=== PATIENT | female | born 1960 | race Caucasian/White ===

== ENCOUNTER 2016-09-05 15:10 | Emergency (ER) | payer BC, OTHER ==
--- NOTE | 2016-09-05 17:41 | REP ---
Clinical: Cough. Technique: PA and lateral. Comparison: None. Findings: Lateral view demonstrates small posterior consolidation. Mediastinum and cardiac silhouette normal. Further evaluation demonstrates small 3 mm calcified nodule in the right upper lung zone and chronic-appearing interstitial changes. No pneumothorax. Skeletal structures demonstrate osteopenia and degenerative changes including mild compression deformity at T12. Impression: Posterior lower lobe infiltrate suggested. Osteopenia and compression deformity at T12 of uncertain chronicity. Signed by Michael Khan MD 09/05/2016 05:32 P
[2016-09-05] MEDS ORDERED: LevoFLOXacin 250 MG TABLET As Ordered ONE (18:44)
[2016-09-05] MEDS ORDERED: LevoFLOXacin 500 MG TABLET As Ordered ONE (18:44)
--- NOTE | 2016-09-05 19:03 | EDDOCDS ---
Physician Documentation [facility] Name: Kina Arora Age: 55 yrs Sex: Female : 1960 Arrival Date: 09/05/2016 Time: 15:10 Bed PR Private MD: No Pcp Disposition: 09/05/16 18:55 Discharged to Home/Self Care. Impression: Pneumonia, unspecified organism, Acute sinusitis, Wedge compression fracture of unspecified thoracic vertebra - T12. - Condition is Stable. - Discharge Instructions: Back, Compression Fracture, Pneumonia, Adult, Sinusitis, Adult. - Prescriptions for Levaquin 750 mg Oral Tablet - take 1 tablet by ORAL route once daily for 5 days; 5 tablet. - Work Release Form - 4 day, Medication Reconciliation, Local Pharmacy Hours form. - Follow up: [facility]; When: 2 - 3 days; Reason: Recheck today's complaints, Continuance of care. - Problem is new. - Symptoms have improved. - Notes: USE MEDICATION INSTRUCTED, FOLLOW UP WITH YOUR DOCTOR OR THE GRADUATE MEDICAL PROGRAM, RETURN TO THE ER IF THE SYMPTOMS WORSEN OR BECOME CONCERNING Historical: - Allergies: no known allergies; - Home Meds: 1. none - PMHx: none; - PSHx: Laparoscopy; - Social history: Smoking status: Patient uses tobacco products, current every day smoker. No barriers to communication noted, The patient speaks fluent Wallisian, Speaks appropriately for age. - Family history: Not pertinent. - : The pt / caregiver states he / she is not on anticoagulants. Home medication list is obtained from the patient. - Exposure Risk Screening:: None identified. 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 2 in. (157.48 cm) (R); Pain 2/10; 18:41 BP 120 / 56; Pulse 86; Resp 18; Temp 100.3(O); Pulse Ox 97% on R/A; Pain 0/10; jb5 15:13 Body Mass Index 18.29 (45.36 kg, 157.48 cm) ct3 MDM: 17:09 Chest, 2 View (pa\E\lat) Ordered. EDMS 17:09 [facility] Payment Agreement was scanned into [employer] and attached to record. gjb 17: Financial registration complete. gjb 18:14 Chest, 2 View (pa\E\lat) Reviewed. ck7 18:39 levofloxacin 750 mg PO once ordered. ck7 Administered Medications: 18:47 Drug: levofloxacin 750 mg [levofloxacin 250 mg tablet (3 tabs)] Route: PO; dy Signatures: Dispatcher [employer] EDMS Maribell Maria, RN RN Homer Barlow, RPA-C RPA-Cck7 Siva Arredondo RN RN jmb Beck, Gabriela gjb Youngs, David RN dy The chart was reviewed and I authenticate all verbal orders and agree with the evaluation and treatment provided.Attachments: 17:09 [facility] Payment Agreement [employer] [facility] MTDD
--- NOTE | 2016-09-05 19:03 | EDDOCDS ---
Nurse's Notes [facility] Name: Kina Arora Age: 55 yrs Sex: Female : 1960 Arrival Date: 09/05/2016 Time: 15:10 Bed PR Private MD: No Pcp Diagnosis: Pneumonia, unspecified organism;Acute sinusitis;Wedge compression fracture of unspecified thoracic vertebra-T12 Presentation: 09/05 15:14 Presenting complaint: Patient states: runny nose, cough and fever off and on for a srm week. Adult Sepsis Screening: The patient does not have new or worsening altered mentation. Patient's respiratory rate is less than 22. Systolic blood pressure is greater than 100. Patient has a qSOFA score of 0- Negative Sepsis Screen. Suicide/Homicide risk assessment- the patient denies having any suicidal and/or homicidal ideations and does not present with any other emotional, behavioral or mental health complaints. Status: Patient is not a customer service administrator or dependent. Transition of care: patient was not received from another setting of care. 15:14 Acuity: FLORIAN Level 5 srm 15:14 Method Of Arrival: Walkin/Carried/Asstd [facility] Triage Assessment: 15:15 General: Appears in no apparent distress, Behavior is appropriate for age, cooperative. srm Pain: Pain currently is 1 out of 10 on a pain scale. 15:15 Pt Declines HIV testing. [facility] C T TECH: 15:15 LMP N/A - Post-menopause srm Historical: - Allergies: no known allergies; - Home Meds: 1. none - PMHx: none; - PSHx: Laparoscopy; - Social history: Smoking status: Patient uses tobacco products, current every day smoker. No barriers to communication noted, The patient speaks fluent Ukrainian, Speaks appropriately for age. - Family history: Not pertinent. - : The pt / caregiver states he / she is not on anticoagulants. Home medication list is obtained from the patient. - Exposure Risk Screening:: None identified. Screenin:00 Screening information is obtained from the patient. Fall risk: No risks identified. jmb Assistance ADL's: requires no assistance with activities of daily living. Abuse/DV Screen: The patient / caregiver reports he/she is: not in a situation that causes fear, pain or injury. Nutritional screening: No deficits noted. Advance Directives: Currently, there is no health care proxy. There is no active DNR order. There is no living will. There is no Power of Security Police Officer. home support is adequate. Assessment: 19:00 General: Patient instructed on discharge instructions. Patient asked if there were any b questions regarding discharge, patient stated no. Patient signed discharge instructions. Patient discharged in stable condition. . Vital Signs: 15:13 BP 113 / 58; Pulse 93; Resp 18; Temp 97.6(O); Pulse Ox 99% on R/A; Weight 45.36 kg (R); ct3 Height 5 ft. 2 in. (157.48 cm) (R); Pain 2/10; 18:41 BP 120 / 56; Pulse 86; Resp 18; Temp 100.3(O); Pulse Ox 97% on R/A; Pain 0/10; jb5 15:13 Body Mass Index 18.29 (45.36 kg, 157.48 cm) ct3 Vitals: 15:13 Log In Time: September 05, 2016 at 15:01. ct3 ED Course: 15:11 Patient visited by Mary Sherman PCA. ct3 15:11 Patient moved to Waiting ct3 15:13 No Pcp is Private Physician. ct3 15:13 Patient moved to Pre RCE ct3 15:14 Triage Initiated srm 16:52 Patient moved to Triage 2 dy 16:54 Homer Sam RPA-C is PHCP. ck7 16:54 Teena Suarez MD is Attending Physician. ck7 16:54 Patient visited by Homer Sam RPA-C. ck7 17:09 [facility] Payment Agreement was scanned into [employer] and attached to record. gjb 17:15 Patient moved to TR1 srm 17:31 Patient visited by Homer Sam RPA-C. ck7 18:12 Patient visited by Homer Sam RPA-C. ck7 18:12 Chest, 2 View (pa\E\lat) Returned. EDMS 18:23 Patient moved to PR1 / 25 jb5 18:41 Patient visited by Bonnie Braga PCA. jb5 18:41 Patient visited by Bonnie Braga PCA. jb5 18:54 [facility] is Referral Physician. ck7 19:00 The patient / caregiver is instructed regarding the plan of care and ED course. jmb 19:00 No IV's were initiated during this patient's visit. No procedures done that require jmb assistance. Administered Medications: 18:47 Drug: levofloxacin 750 mg [levofloxacin 250 mg tablet (3 tabs)] Route: PO; dy Order Results: Radiology Order: Chest, 2 View (pa\E\lat) Test: Chest, 2 View (pa\E\lat) REASON FOR EXAMINATION: Cough; Clinical: Cough.; ; Technique: PA and lateral.; ; Comparison: None.; ; Findings:; Lateral view demonstrates small posterior consolidation.; Mediastinum and cardiac silhouette normal. Further evaluation demonstrates small; 3 mm calcified nodule in the right upper lung zone and chronic-appearing; interstitial changes. No pneumothorax. Skeletal structures demonstrate; osteopenia and degenerative changes including mild compression deformity at T12.; ; Impression:; Posterior lower lobe infiltrate suggested.; Osteopenia and compression deformity at T12 of uncertain chronicity.; ; ; Signed by; Michael Khan MD 09/05/2016 05:32 P; Outcome: 18:55 Discharge ordered by Provider. ck7 19:00 Discharge Assessment: Patient awake, alert and oriented x 3. No cognitive and/or jmb functional deficits noted. Patient verbalized understanding of disposition instructions. Patient awake and alert. obeys commands, Oriented to person, place and time. Patient verbalized understanding of disposition instructions. Patient has no functional deficits. patient administered narcotics - no. The following High Risk Discharge criteria are identified: None. Discharged to home ambulatory. Condition: stable. Discharge instructions given to patient, Instructed on discharge instructions, follow up and referral plans. medication usage, Demonstrated understanding of instructions, medications, Pt was receptive of discharge instructions/ teaching. Prescriptions given X 1, Work note provided to patient. No special radiology studies were completed. Property sent home with patient. 19:02 Patient left the ED. carissa Signatures: Dispatcher [employer] EDMS Maribell Maria, Devonte Huston RN, RN RN dy Baker, Janet, SUSPECT ARTIST SUSPECT ARTIST jb5 Mary Sherman, SUSPECT ARTIST SUSPECT ARTIST ct3 Homer Sam, RPA-C RPA-Cck7 Siva Arredondo RN RN jmb Beck, Gabriela gjb Corrections: (The following items were deleted from the chart) 15:14 15:13 BP 113 / 58; ct3 ct3 MTDD
--- NOTE | 2016-09-07 20:02 | EDDOCDS ---
Physician Documentation [facility] Name: Kina Arora Age: 55 yrs Sex: Female : 1960 Arrival Date: 09/05/2016 Time: 15:10 Bed PR Private MD: No Pcp Disposition: 09/05/16 18:55 Discharged to Home/Self Care. Impression: Pneumonia, unspecified organism, Acute sinusitis, Wedge compression fracture of unspecified thoracic vertebra - T12. - Condition is Stable. - Discharge Instructions: Back, Compression Fracture, Pneumonia, Adult, Sinusitis, Adult. - Prescriptions for Levaquin 750 mg Oral Tablet - take 1 tablet by ORAL route once daily for 5 days; 5 tablet. - Work Release Form - 4 day, Medication Reconciliation, Local Pharmacy Hours form. - Follow up: [facility]; When: 2 - 3 days; Reason: Recheck today's complaints, Continuance of care. - Problem is new. - Symptoms have improved. - Notes: USE MEDICATION INSTRUCTED, FOLLOW UP WITH YOUR DOCTOR OR THE GRADUATE MEDICAL PROGRAM, RETURN TO THE ER IF THE SYMPTOMS WORSEN OR BECOME CONCERNING Historical: - Allergies: no known allergies; - Home Meds: 1. none - PMHx: none; - PSHx: Laparoscopy; - Social history: Smoking status: Patient uses tobacco products, current every day smoker. No barriers to communication noted, The patient speaks fluent [place], Speaks appropriately for age. - Family history: Not pertinent. - : The pt / caregiver states he / she is not on anticoagulants. Home medication list is obtained from the patient. - Exposure Risk Screening:: None identified. 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 2 in. (157.48 cm) (R); Pain 2/10; 18:41 BP 120 / 56; Pulse 86; Resp 18; Temp 100.3(O); Pulse Ox 97% on R/A; Pain 0/10; jb5 15:13 Body Mass Index 18.29 (45.36 kg, 157.48 cm) ct3 MDM: 17:09 Chest, 2 View (pa\E\lat) Ordered. EDMS 17: [facility] Payment Agreement was scanned into [employer] and attached to record. b : Financial registration complete. gjb 18: Chest, 2 View (pa\E\lat) Reviewed. 18:39 levofloxacin 750 mg PO once ordered. ck7 09/06 08:58 T-Sheet-- Draft Copy was scanned into [employer] and attached to record. gb Administered Medications: 09/05 18:47 Drug: levofloxacin 750 mg [levofloxacin 250 mg tablet (3 tabs)] Route: PO; dy Signatures: Dispatcher [employer] EDMS Maribell Maria, Sherry Damon RN, Reg Reg Homer Desir, RPA-C RPA-Cck7 Siva Arredondo RN RN jmb Beck, Gabriela gjb Youngs, David RN dy The chart was reviewed and I authenticate all verbal orders and agree with the evaluation and treatment provided.Attachments: : [facility] Payment Agreement [facility] 09/06 08:58 T-Sheet-- Draft Copy gb Chart Complete MTDD
--- NOTE | 2016-09-07 20:02 | EDDOCDS ---
Physician Documentation [facility] Name: Kina Arora Age: 55 yrs Sex: Female : 1960 Arrival Date: 09/05/2016 Time: 15:10 Bed PR Private MD: No Pcp Disposition: 09/05/16 18:55 Discharged to Home/Self Care. Impression: Pneumonia, unspecified organism, Acute sinusitis, Wedge compression fracture of unspecified thoracic vertebra - T12. - Condition is Stable. - Discharge Instructions: Back, Compression Fracture, Pneumonia, Adult, Sinusitis, Adult. - Prescriptions for Levaquin 750 mg Oral Tablet - take 1 tablet by ORAL route once daily for 5 days; 5 tablet. - Work Release Form - 4 day, Medication Reconciliation, Local Pharmacy Hours form. - Follow up: [facility]; When: 2 - 3 days; Reason: Recheck today's complaints, Continuance of care. - Problem is new. - Symptoms have improved. - Notes: USE MEDICATION INSTRUCTED, FOLLOW UP WITH YOUR DOCTOR OR THE GRADUATE MEDICAL PROGRAM, RETURN TO THE ER IF THE SYMPTOMS WORSEN OR BECOME CONCERNING Historical: - Allergies: no known allergies; - Home Meds: 1. none - PMHx: none; - PSHx: Laparoscopy; - Social history: Smoking status: Patient uses tobacco products, current every day smoker. No barriers to communication noted, The patient speaks fluent Macedonian, Speaks appropriately for age. - Family history: Not pertinent. - : The pt / caregiver states he / she is not on anticoagulants. Home medication list is obtained from the patient. - Exposure Risk Screening:: None identified. 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 2 in. (157.48 cm) (R); Pain 2/10; 18:41 BP 120 / 56; Pulse 86; Resp 18; Temp 100.3(O); Pulse Ox 97% on R/A; Pain 0/10; jb5 15:13 Body Mass Index 18.29 (45.36 kg, 157.48 cm) ct3 MDM: 17:09 Chest, 2 View (pa\E\lat) Ordered. EDMS 17: [facility] Payment Agreement was scanned into [employer] and attached to record. b : Financial registration complete. gjb 18: Chest, 2 View (pa\E\lat) Reviewed. 18:39 levofloxacin 750 mg PO once ordered. ck7 09/06 08:58 T-Sheet-- Draft Copy was scanned into [employer] and attached to record. gb Administered Medications: 09/05 18:47 Drug: levofloxacin 750 mg [levofloxacin 250 mg tablet (3 tabs)] Route: PO; dy Signatures: Dispatcher [employer] EDMS Maribell Maria, Sherry Damon RN, Reg Reg Homer Desir, RPA-C RPA-Cck7 Siva Arredondo RN RN jmb Beck, Gabriela gjb Youngs, David RN dy The chart was reviewed and I authenticate all verbal orders and agree with the evaluation and treatment provided.Attachments: : [facility] Payment Agreement [facility] 09/06 08:58 T-Sheet-- Draft Copy gb Chart Complete MTDD
--- NOTE | 2016-09-07 20:03 | EDDOCDS ---
Nurse's Notes [facility] Name: Kina Arora Age: 55 yrs Sex: Female : 1960 Arrival Date: 09/05/2016 Time: 15:10 Bed PR Private MD: No Pcp Diagnosis: Pneumonia, unspecified organism;Acute sinusitis;Wedge compression fracture of unspecified thoracic vertebra-T12 Presentation: 09/05 15:14 Presenting complaint: Patient states: runny nose, cough and fever off and on for a srm week. Adult Sepsis Screening: The patient does not have new or worsening altered mentation. Patient's respiratory rate is less than 22. Systolic blood pressure is greater than 100. Patient has a qSOFA score of 0- Negative Sepsis Screen. Suicide/Homicide risk assessment- the patient denies having any suicidal and/or homicidal ideations and does not present with any other emotional, behavioral or mental health complaints. Status: Patient is not a family services coordinator or dependent. Transition of care: patient was not received from another setting of care. 15:14 Acuity: FLORIAN Level 5 srm 15:14 Method Of Arrival: Walkin/Carried/Asstd [facility] Triage Assessment: 15:15 General: Appears in no apparent distress, Behavior is appropriate for age, cooperative. srm Pain: Pain currently is 1 out of 10 on a pain scale. 15:15 Pt Declines HIV testing. 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 none - PMHx: none; - PSHx: Laparoscopy; - Social history: Smoking status: Patient uses tobacco products, current every day smoker. No barriers to communication noted, The patient speaks fluent Amharic, Speaks appropriately for age. - Family history: Not pertinent. - : The pt / caregiver states he / she is not on anticoagulants. Home medication list is obtained from the patient. - Exposure Risk Screening:: None identified. Screenin:00 Screening information is obtained from the patient. Fall risk: No risks identified. jmb Assistance ADL's: requires no assistance with activities of daily living. Abuse/DV Screen: The patient / caregiver reports he/she is: not in a situation that causes fear, pain or injury. Nutritional screening: No deficits noted. Advance Directives: Currently, there is no health care proxy. There is no active DNR order. There is no living will. There is no Power of Cone Runner. home support is adequate. Assessment: 19:00 General: Patient instructed on discharge instructions. Patient asked if there were any b questions regarding discharge, patient stated no. Patient signed discharge instructions. Patient discharged in stable condition. . Vital Signs: 15:13 BP 113 / 58; Pulse 93; Resp 18; Temp 97.6(O); Pulse Ox 99% on R/A; Weight 45.36 kg (R); ct3 Height 5 ft. 2 in. (157.48 cm) (R); Pain 2/10; 18:41 BP 120 / 56; Pulse 86; Resp 18; Temp 100.3(O); Pulse Ox 97% on R/A; Pain 0/10; jb5 15:13 Body Mass Index 18.29 (45.36 kg, 157.48 cm) ct3 Vitals: 15:13 Log In Time: September 05, 2016 at 15:01. ct3 ED Course: 15:11 Patient visited by Mary Sherman PCA. ct3 15:11 Patient moved to Waiting ct3 15:13 No Pcp is Private Physician. ct3 15:13 Patient moved to Pre RCE ct3 15:14 Triage Initiated srm 16:52 Patient moved to Triage 2 dy 16:54 Homer Sam RPA-C is PHCP. ck7 16:54 Teena Suarez MD is Attending Physician. ck7 16:54 Patient visited by Homer Sam RPA-C. ck7 17:09 [facility] Payment Agreement was scanned into [employer] and attached to record. gjb 17:15 Patient moved to TR1 srm 17:31 Patient visited by Homer Sam RPA-C. ck7 18:12 Patient visited by Homer Sam RPA-C. ck7 18:12 Chest, 2 View (pa\E\lat) Returned. EDMS 18:23 Patient moved to PR1 / 25 jb5 18:41 Patient visited by Bonnie Braga PCA. jb5 18:41 Patient visited by Bonnie Braga PCA. jb5 18:54 [facility] is Referral Physician. ck7 19:00 The patient / caregiver is instructed regarding the plan of care and ED course. jmb 19:00 No IV's were initiated during this patient's visit. No procedures done that require jmb assistance. 09/06 08:58 T-Sheet-- Draft Copy was scanned into [employer] and attached to record. gb Administered Medications: 09/05 18:47 Drug: levofloxacin 750 mg [levofloxacin 250 mg tablet (3 tabs)] Route: PO; dy Order Results: Radiology Order: Chest, 2 View (pa\E\lat) Test: Chest, 2 View (pa\E\lat) REASON FOR EXAMINATION: Cough; Clinical: Cough.; ; Technique: PA and lateral.; ; Comparison: None.; ; Findings:; Lateral view demonstrates small posterior consolidation.; Mediastinum and cardiac silhouette normal. Further evaluation demonstrates small; 3 mm calcified nodule in the right upper lung zone and chronic-appearing; interstitial changes. No pneumothorax. Skeletal structures demonstrate; osteopenia and degenerative changes including mild compression deformity at T12.; ; Impression:; Posterior lower lobe infiltrate suggested.; Osteopenia and compression deformity at T12 of uncertain chronicity.; ; ; Signed by; Michael Khan MD 09/05/2016 05:32 P; Outcome: 18:55 Discharge ordered by Provider. ck7 19:00 Discharge Assessment: Patient awake, alert and oriented x 3. No cognitive and/or jmb functional deficits noted. Patient verbalized understanding of disposition instructions. Patient awake and alert. obeys commands, Oriented to person, place and time. Patient verbalized understanding of disposition instructions. Patient has no functional deficits. patient administered narcotics - no. The following High Risk Discharge criteria are identified: None. Discharged to home ambulatory. Condition: stable. Discharge instructions given to patient, Instructed on discharge instructions, follow up and referral plans. medication usage, Demonstrated understanding of instructions, medications, Pt was receptive of discharge instructions/ teaching. Prescriptions given X 1, Work note provided to patient. No special radiology studies were completed. Property sent home with patient. 19:02 Patient left the ED. carissa Signatures: [facility] Maribell Maria RN RN [facility] Esperanza, Sherry, Reg Reg Devonte Muñoz RN RN dy Baker, Janet, APPLICATIONS SUPPORT SPECIALIST APPLICATIONS SUPPORT SPECIALIST jb5 Mary Sherman, APPLICATIONS SUPPORT SPECIALIST APPLICATIONS SUPPORT SPECIALIST ct3 Homer Sam, RPA-C RPA-Cck7 Siva Arredondo,RN RN Rosa Elena Jaffe Corrections: (The following items were deleted from the chart) 15:14 15:13 BP 113 / 58; ct3 ct3 Chart Complete MTDD
== END 2016-09-05 19:02 | disposition home or self-care (01) ==
LOC: M ED 15:10
DX: J18.9 Pneumonia, unspecified organism (principal); S22.080A Wedge compression fracture of T11-T12 vertebra, initial encounter for closed fracture; X58.XXXA Exposure to other specified factors, initial encounter; Y92.89 Other specified places as the place of occurrence of the external cause; Y93.89 Activity, other specified; Y99.8 Other external cause status; J01.90 Acute sinusitis, unspecified; F17.210 Nicotine dependence, cigarettes, uncomplicated

== ENCOUNTER → 2016-09-26 | Outpatient (CLI) | payer BC ==
--- NOTE | 2016-09-30 09:38 | DEXA ---
AP SPINE L1 - L4 0.749 -3.6 -2.2 LT FEMUR TOTAL 0.621 -3.1 -2.0 RT FEMUR TOTAL 0.643 -2.9 -1.8 TOTAL BODY TOTAL OTHER DUAL FEMUR FRAX* ASSESSMENT Risk factors: History adult fracture, premature menopause, tobacco user. 10 year probability of fracture Major osteoporotic fracture 24.9 % Hip fracture 13.6 % COMMENTS: There is osteoporosis of the spine and hips. FOLLOW-UP: Recommendation for the next bone density exam: 2 years. MTDD
--- NOTE | 2016-10-06 13:49 | REPMRS ---
Patient History The patient states she has not had a clinical breast exam in over a year. Patient is postmenopausal. No known family history of cancer. Digital Woman Screen Mammo: September 26, 2016 - Exam #: [id number] Bilateral CC and MLO view(s) were taken. Technologist: Wendy Navarro, Technologist FINDINGS: The breast tissue is heterogeneously dense. This may lower the sensitivity of mammography. There has been no change in the appearance of the mammogram from the prior studies. There is a moderate amount of residual fibroglandular tissue which is fairly symmetric. There is no interval development of dominant mass, areas of architectural distortion, or clustered microcalcification typical of malignancy. ASSESSMENT: BI-RADS/ACR category 1 mammogram. Negative. Recommendation Routine screening mammogram in 1 year (for women over age 40). This mammogram was interpreted with the aid of an FDA-approved computer-aided dectection system. Electronically Signed By: Jayy Velasco MD 10/06/16 0739
== END | disposition home or self-care (01) ==
LOC: M WHC 14:00
PROVIDERS: ATTEND Family Medicine
DX: Z12.31 Encounter for screening mammogram for malignant neoplasm of breast (principal); M85.80 Other specified disorders of bone density and structure, unspecified site; M81.0 Age-related osteoporosis without current pathological fracture; Z78.0 Asymptomatic menopausal state
CPT/HCPCS: 77080; G0202

== ENCOUNTER → 2016-09-30 | Outpatient (CLI) | payer BC ==
[2016-09-30 16:51] LABS: ALBUMIN 3.9 GM/DL (3.2-5.2); ALBUMIN/GLOBULIN RATIO 1.56 (1.00-1.93); ALKALINE PHOSPHATASE 72 U/L (45-117); ALT/SGPT 18 U/L (12-78); ANION GAP 6 MEQ/L (8-16); AST/SGOT 14 U/L (15-37); BILIRUBIN,TOTAL 0.3 MG/DL (0.2-1.0); BLOOD UREA NITROGEN 15 MG/DL (7-18); CALCIUM LEVEL 8.8 MG/DL (8.5-10.1); CARBON DIOXIDE LEVEL 32 MEQ/L (21-32); CHLORIDE LEVEL 104 MEQ/L (98-107); CHOLESTEROL LEVEL 242 MG/DL (<200); CREATININE FOR GFR 0.76 MG/DL (0.55-1.02); GLOMERULAR FILTRATION RATE > 60.0 (>51); GLUCOSE, FASTING 59 MG/DL (70-105); POTASSIUM SERUM 3.8 MEQ/L (3.5-5.1); SODIUM LEVEL 142 MEQ/L (136-145); TOTAL PROTEIN 6.4 GM/DL (6.4-8.2); TRIGLYCERIDES LEVEL 57 MG/DL (<150)
[2016-09-30 18:06] LABS: BASO % 0.3 % (0.0-1.0); EOS # 0.4 K/mm3 (0.0-0.50); EOS % 8.3 % (0.0-3.0); LARGE UNSTAINED CELL # 0.1 K/mm3 (0.0-0.4); LYMPH % 39.8 % (24.0-44.0); MEAN CORPUSCULAR HEMOGLOBIN 28.5 pg (27.0-33.0); MEAN CORPUSCULAR HGB CONC 32.6 g/dl (32.0-36.5); MEAN CORPUSCULAR VOLUME 87.4 fl (80.0-96.0); MONO # 0.3 K/mm3 (0.0-0.8); MONO % 5.1 % (0.0-5.0); NEUTROPHILS # 2.3 K/mm3 (1.8-7.7); NEUTROPHILS % 44.5 % (36.0-66.0); PLATELET COUNT, AUTOMATED 203 k/mm3 (150-450); WHITE BLOOD COUNT 5.1 K/mm3 (4.0-10.0)
== END | disposition home or self-care (01) ==
LOC: M LAB 15:32
PROVIDERS: ATTEND Student in an Organized Health Care Education/Training Program
DX: Z51.81 Encounter for therapeutic drug level monitoring (principal); Z79.899 Other long term (current) drug therapy; J18.1 Lobar pneumonia, unspecified organism; R19.7 Diarrhea, unspecified; Z71.89 Other specified counseling; R53.1 Weakness

== ENCOUNTER → 2016-11-11 | Outpatient (CLI) | payer BC ==
[2016-11-14 00:09] LABS: SJOGREN'S ANTI SS-A <0.2 AI (0.0-0.9); SJOGREN'S ANTI SS-B <0.2 AI (0.0-0.9)
== END ==
LOC: M LAB 15:37
PROVIDERS: ATTEND Student in an Organized Health Care Education/Training Program
DX: M81.0 Age-related osteoporosis without current pathological fracture (principal); K52.9 Noninfective gastroenteritis and colitis, unspecified

== ENCOUNTER 2017-01-24 11:49 | Emergency (ER) | payer OTHER, BC ==
[~2017-01-24] VITALS: Ht 154.9 cm; Wt 48.1 kg
[2017-01-24] MEDS ORDERED: CALC600T21 PO (12:00)
[2017-01-24] MEDS ORDERED: VITA200016 PO (12:00)
[2017-01-24] MEDS ORDERED: TYLE325C PO (14:31)
[2017-01-24 14:38] VITALS: BP 122/65
--- NOTE | 2017-01-25 07:57 | REP ---
UNILATERAL LEFT RIBS, PA CHEST: HISTORY: Pain. COMPARISON: 09/05/2016 A calcified granuloma is present in the right upper lobe. The left lung is clear. The heart is normal in size. The pulmonary vasculature is normal in appearance. The bony structure is intact. IMPRESSION: Old granulomatous disease. Signed by Laith Alcantar MD 01/25/2017 08:34 A
== END 2017-01-24 14:43 | disposition home or self-care (01) ==
LOC: M ED 13:10
DX: M94.0 Chondrocostal junction syndrome [Tietze] (principal); M81.0 Age-related osteoporosis without current pathological fracture; F17.200 Nicotine dependence, unspecified, uncomplicated; Z79.899 Other long term (current) drug therapy

== ENCOUNTER → 2017-04-02 | Outpatient (REF) | payer BC ==
[~2017-04-02] MED LIST: CALC600T60 PO; FORT600S SC; NEUR100C PO; TYLE325C PO; VITA200016 PO
== END ==
LOC: M SFHCPLAZ 11:51
PROVIDERS: ATTEND Student in an Organized Health Care Education/Training Program
DX: R19.7 Diarrhea, unspecified (principal)

== ENCOUNTER → 2017-04-03 | Outpatient (CLI) | payer BC ==
[2017-04-03 09:40] LABS: ANION GAP 7 MEQ/L (8-16); BLOOD UREA NITROGEN 10 MG/DL (7-18); CALCIUM LEVEL 9.7 MG/DL (8.5-10.1); CARBON DIOXIDE LEVEL 30 MEQ/L (21-32); CHLORIDE LEVEL 105 MEQ/L (98-107); CREATININE FOR GFR 0.82 MG/DL (0.55-1.02); GLOMERULAR FILTRATION RATE > 60.0 (>51); GLUCOSE, FASTING 100 MG/DL (70-105); POTASSIUM SERUM 4.4 MEQ/L (3.5-5.1); SODIUM LEVEL 142 MEQ/L (136-145)
[2017-04-09 00:06] LABS: IgA ULTRASENSITIVE 139.9 mg/dL (72-321)
== END ==
LOC: M LAB 08:27
PROVIDERS: ATTEND Student in an Organized Health Care Education/Training Program
DX: M25.50 Pain in unspecified joint (principal); Z79.899 Other long term (current) drug therapy; R19.7 Diarrhea, unspecified

== ENCOUNTER → 2017-04-08 | Outpatient (REF) | payer BC | LOC: M LAB REF 15:57 | PROVIDERS: ATTEND Physician Assistant Medical | DX: Z86.010 Personal history of colon polyps (principal) ==

== ENCOUNTER → 2017-04-08 | Outpatient (CLI) | payer BC ==
--- NOTE | 2017-04-08 16:49 | REP ---
KUB: Single view. History: Sitz marker study. History of loose stools. Previous history of constipation. Findings: The bowel gas pattern is unremarkable. No sitz marker is retained within the colon or small intestine on today's radiograph. There are degenerative changes in the lumbar spine. Psoas margins are symmetric. There is diffuse osteopenia. Impression: Negative KUB. No sitz markers are visible. Signed by Jacob Moreno MD 04/08/2017 05:01 P
== END ==
LOC: M RAD 08:00
PROVIDERS: ATTEND Physician Assistant Medical
DX: R19.7 Diarrhea, unspecified (principal)

== ENCOUNTER 2017-04-14 10:52 | Outpatient (CLI) | payer BC ==
[~2017-04-14] VITALS: Ht 154.9 cm; Wt 47.6 kg
[~2017-04-14 10:52] MED LIST changes: +LIDOCAINE 2% INJ 100 MG/5 ML SDV (FOR ANES.) As Ordered ONE; +PROPOFOL 200 MG/20 ML VIAL As Ordered ONE
[2017-04-14] MEDS ORDERED: NS 1,000 ML IV ONE (11:00)
--- NOTE | 2017-04-14 13:01 | ROOR ---
Patient Name: Kina Arora Procedure Date: 04/14/2017 12:30 PM Date of : 1960 Age: 56 Room: [facility] Gender: Female Note Status: Finalized Procedure: Colonoscopy Indications: High risk colon cancer surveillance: Personal history of colonic polyps, Incidental - Clinically significant diarrhea of unexplained origin Providers: Devonte PACHECO MD Referring MD: ALAINA STAFFORD MD Requesting Provider: Medicines: Monitored Anesthesia Care Complications: No immediate complications. Procedure: Pre-Anesthesia Assessment: - The heart rate, respiratory rate, oxygen saturations, blood pressure, adequacy of pulmonary ventilation, and response to care were monitored throughout the procedure. The Colonoscope was introduced through the anus and advanced to 3 cm into the ileum. The colonoscopy was performed without difficulty. The patient tolerated the procedure well. The quality of the bowel preparation was good. Findings: The perianal and digital rectal examinations were normal. A diminutive polyp was found in the sigmoid colon. The polyp was sessile. The polyp was removed with a cold snare. Resection and retrieval were complete. Small Internal Hemorrhoids. The exam was otherwise without abnormality on direct and retroflexion views. Biopsies for histology were taken with a cold forceps from the entire colon for evaluation of microscopic colitis. The terminal ileum appeared normal. Impression: - One diminutive polyp in the sigmoid colon, removed with a cold snare. Resected and retrieved. - Small Internal Hemorrhoids. - The colon was otherwise normal on direct and retroflexion views. - The examined portion of the ileum was normal. - Biopsies were taken with a cold forceps from the entire colon for evaluation of microscopic colitis. Recommendation: - Telephone endoscopist for pathology results in 2 weeks. - If the pathology report reveals adenomatous tissue, then repeat the colonoscopy for surveillance in 5 years. Devonte Pacheco MD Devonte PACHECO MD 04/14/2017 1:00:38 PM This report has been signed electronically. Number of Addenda: 0 Note Initiated On: 04/14/2017 12:30 PM Estimated Blood Loss: Estimated blood loss: none.
[2017-04-14] MEDS ORDERED: PROPOFOL 200 MG/20 ML VIAL As Ordered ONE (13:24)
[2017-04-14 13:29] VITALS: BP 115/59
== END 2017-04-14 13:42 | disposition home or self-care (01) ==
LOC: M OPP 10:52
PROVIDERS: ATTEND Internal Medicine Gastroenterology
DX: Z12.11 Encounter for screening for malignant neoplasm of colon (principal); D12.5 Benign neoplasm of sigmoid colon; Z86.010 Personal history of colon polyps; M19.90 Unspecified osteoarthritis, unspecified site; M54.9 Dorsalgia, unspecified; M81.8 Other osteoporosis without current pathological fracture; Z78.0 Asymptomatic menopausal state; F17.210 Nicotine dependence, cigarettes, uncomplicated; Z79.899 Other long term (current) drug therapy

== ENCOUNTER → 2017-05-07 | Outpatient (CLI) | payer BC ==
[~2017-05-07] MED LIST changes: -LIDOCAINE 2% INJ 100 MG/5 ML SDV (FOR ANES.) As Ordered ONE; -PROPOFOL 200 MG/20 ML VIAL As Ordered ONE
[2017-05-07 17:22] LABS: CALCIUM LEVEL 9.5 MG/DL (8.5-10.1)
== END ==
LOC: M LAB 15:36
PROVIDERS: ATTEND Internal Medicine Endocrinology, Diabetes & Metabolism
DX: M81.0 Age-related osteoporosis without current pathological fracture (principal); E55.9 Vitamin D deficiency, unspecified

== ENCOUNTER → 2017-05-14 | Outpatient (REF) | payer BC | LOC: M SFHCWAGY 08:46 | PROVIDERS: ATTEND Nurse Practitioner Women's Health | DX: Z01.419 Encounter for gynecological examination (general) (routine) without abnormal findings (principal); Z11.51 Encounter for screening for human papillomavirus (HPV); N95.2 Postmenopausal atrophic vaginitis ==

== ENCOUNTER 2017-08-26 15:07 | Emergency (ER) | payer OTHER, BC | END 2017-08-26 17:13 | disposition home or self-care (01) | LOC: M ED 15:07 | DX: M71.521 Other bursitis, not elsewhere classified, right elbow (principal); M81.0 Age-related osteoporosis without current pathological fracture; F17.210 Nicotine dependence, cigarettes, uncomplicated; Z79.899 Other long term (current) drug therapy | CPT/HCPCS: 99284 ==

== ENCOUNTER → 2019-09-23 | Outpatient (REF) | payer BC ==
[2019-09-23 12:35] LABS: ALBUMIN 4.2 GM/DL (3.2-5.2); ALT/SGPT 16 U/L (12-78); BILIRUBIN,TOTAL 0.4 MG/DL (0.2-1.0); BLOOD UREA NITROGEN 11 MG/DL (7-18); CALCIUM LEVEL 9.1 MG/DL (8.5-10.1); CARBON DIOXIDE LEVEL 30 MEQ/L (21-32); CHLORIDE LEVEL 106 MEQ/L (98-107); CREATININE FOR GFR 0.71 MG/DL (0.55-1.30); GLOMERULAR FILTRATION RATE > 60.0 (>51); GLUCOSE, FASTING 92 MG/DL (70-100); POTASSIUM SERUM 4.5 MEQ/L (3.5-5.1); SODIUM LEVEL 139 MEQ/L (136-145); TOTAL PROTEIN 7.2 GM/DL (6.4-8.2)
== END ==
LOC: M SFHCPLAZ 10:08
PROVIDERS: ATTEND Family Medicine
DX: K52.838 Other microscopic colitis (principal)

== ENCOUNTER → 2019-12-23 | Outpatient (REF) | payer BC ==
[2019-12-23 11:21] LABS: HEMATOCRIT 41.8 % (36.0-47.0); HEMOGLOBIN 13.9 g/dl (12.0-15.5); MEAN CORPUSCULAR HEMOGLOBIN 30.2 pg (27.0-33.0); MEAN CORPUSCULAR HGB CONC 33.3 g/dl (32.0-36.5); MEAN CORPUSCULAR VOLUME 90.9 fl (80.0-96.0); PLATELET COUNT, AUTOMATED 256 10^3/uL (150-450)
[2019-12-23 12:15] LABS: TOTAL 25(OH) VITAMIN D 13.7 NG/ML (30.0-100.0)
[2019-12-23 12:27] LABS: CHOLESTEROL RISK RATIO 3.379 (<5); THYROID STIMULATING HORMONE 0.653 uIU/ML (0.358-3.740)
== END ==
LOC: M SFHCPLAZ 10:42
PROVIDERS: ATTEND Family Medicine
DX: Z00.00 Encounter for general adult medical examination without abnormal findings (principal); M81.0 Age-related osteoporosis without current pathological fracture; Z13.220 Encounter for screening for lipoid disorders

== ENCOUNTER 2019-12-31 12:59 | Emergency (ER) | payer BC ==
[~2019-12-31] VITALS: Ht 154.9 cm; Wt 49.1 kg
[2019-12-31 12:59] VITALS: BP_DIAS 54
[2019-12-31 14:07] VITALS: BP_SYST 117
--- NOTE | 2019-12-31 14:22 | REP ---
REASON: Trauma. Degenerative changes seen throughout the foot. There is a mild hallux valgus deformity. Multiple hammertoe deformities are suspected but need to be correlated clinically. There is a small retrocalcaneal heel spur. IMPRESSION: Chronic changes. Electronically Signed by Ovidio Martin DO 12/31/2019 02:41 P
== END 2019-12-31 14:09 | disposition home or self-care (01) ==
LOC: M ED 12:59
DX: S90.32XA Contusion of left foot, initial encounter (principal); W22.8XXA Striking against or struck by other objects, initial encounter; Y92.018 Other place in single-family (private) house as the place of occurrence of the external cause; F17.210 Nicotine dependence, cigarettes, uncomplicated

== ENCOUNTER → 2020-03-02 | Outpatient (CLI) | payer BC ==
--- NOTE | 2020-03-03 07:59 | REP ---
REASON FOR EXAM: Tobacco abuse. There are no priors for comparison. As per the protocol, only lung window images were sent to the read station for interpretation. There is evidence of biapical pleuroparenchymal scarring. There are multiple subtle nodular ground-glass opacities in the right upper lobe. These all measure between 3 and 5 mm. Asymmetric and nodular densities are seen in the inferior right middle lobe. These are somewhat diffuse. There are no other abnormal nodules, masses, or opacities. Limited evaluation of the mediastinum and pulmonary matthew show no gross abnormalities. Limited evaluation of the imaged upper abdomen and imaged osseous structures shows no gross abnormalities. IMPRESSION: 1. Evidence of chronic biapical pleuroparenchymal scarring, however, no priors for comparison. I would recommend short interval followup. 2. Subtle nodular ground-glass opacities in the right upper lobe. There is no revised Fleischner Society criteria on the recommendation for followup of such findings, however, these areas too should be followed in 3 months, since there are no priors for comparison. 3. Asymmetric and nodular densities in the inferior right middle lobe, as described above. These areas too should be followed in the recommended 3-month interval. Lung-RADS category 4A exam, since there are no priors for comparison. Electronically Signed by Ovidio Martin DO 03/04/2020 08:27 A
== END ==
LOC: M RAD 10:17
PROVIDERS: ATTEND Family Medicine
DX: Z12.2 Encounter for screening for malignant neoplasm of respiratory organs (principal)

== ENCOUNTER → 2020-07-18 | Outpatient (CLI) | payer BC ==
--- NOTE | 2020-07-18 13:08 | REP ---
INDICATION: ABN CT LUNG SCREENING COMPARISON: 03/02/2020 TECHNIQUE: Axial noncontrast images from the thoracic inlet to the upper abdomen with coronal and sagittal reformations. This CT examination was performed using the following dose reduction techniques: Automated exposure control, adjustment of mA and/or kv according to the patient's size, and use of iterative reconstruction technique. FINDINGS: The bilateral lung archer are well aerated and relatively stable. Biapical pleuroparenchymal scarring along with subtle nodular ground-glass opacity in the right upper lobe and medial right middle lobe are unchanged and likely represent chronic findings. Calcified nodule in the medial left lower lobe is also identified and stable consistent with prior granulomatous disease. No acute consolidation, new nodule or mass lesion. No pleural effusion. No pneumothorax. Tracheobronchial tree is patent. No obvious adenopathy. Further evaluation of the mediastinum demonstrates minimal atherosclerotic changes to the thoracic aorta and coronary arteries without aortic aneurysm or cardiomegaly. No pericardial effusion. Surrounding musculoskeletal structures are intact. Upper abdomen demonstrates stable 3.5 cm hepatic cyst. IMPRESSION: Stable presumed chronic findings at the bilateral apices and within the right lung. Consider follow-up examination in 9-12 months to confirm stability and chronicity. <Electronically signed by Michael Khan > 07/18/20 [id number]
== END ==
LOC: M RAD 11:06
PROVIDERS: ATTEND Family Medicine
DX: R91.8 Other nonspecific abnormal finding of lung field (principal); K76.89 Other specified diseases of liver

== ENCOUNTER 2020-08-06 06:33 | Emergency (ER) | payer BC ==
[~2020-08-06] VITALS: Ht 157.5 cm; Wt 50.8 kg
[2020-08-06] MEDS ORDERED: NORCO, ANEXSIA 5/325MG TABLET (HYDROcodone/ACETAMINOPHEN) PO ONE (07:00)
--- NOTE | 2020-08-06 07:59 | REP ---
INDICATION: fall onto knee, medial tenderness COMPARISON: None. TECHNIQUE: There are four views. FINDINGS: There is no fracture or dislocation. Mineralization and joint spaces are normal. There are no calcifications or foreign bodies. There is no effusion. IMPRESSION: Negative right knee. <Electronically signed by Jayy Marie > 08/06/20 [id number]
--- NOTE | 2020-08-06 08:10 | REP ---
INDICATION: INJURY COMPARISON: None. TECHNIQUE: There are four views. FINDINGS: There is an impacted comminuted fracture of the head and neck of the radius. There is no dislocation. The carpal ossicles are unremarkable. Joint spaces are unremarkable. There are no calcifications or foreign bodies. IMPRESSION: Impacted comminuted fracture of the head and neck of the radius. <Electronically signed by Jayy Marie > 08/06/20 0821
[2020-08-06 08:35] VITALS: BP 110/59
[2020-08-06] MEDS ORDERED: NORC1TAB7 PO ×2 (08:55→08:59)
== END 2020-08-06 09:09 | disposition home or self-care (01) ==
LOC: M ED 06:33
DX: S80.01XA Contusion of right knee, initial encounter (principal); S52.124A Nondisplaced fracture of head of right radius, initial encounter for closed fracture; S52.134A Nondisplaced fracture of neck of right radius, initial encounter for closed fracture; W18.43XA Slipping, tripping and stumbling without falling due to stepping from one level to another, initial encounter; Y92.099 Unspecified place in other non-institutional residence as the place of occurrence of the external cause; Y93.9 Activity, unspecified; Y99.9 Unspecified external cause status; M81.0 Age-related osteoporosis without current pathological fracture; F17.200 Nicotine dependence, unspecified, uncomplicated
CPT/HCPCS: 73110; 73564; 99284; U0002

== ENCOUNTER → 2021-07-16 | Outpatient (CLI) | payer BC ==
[~2021-07-16] MED LIST changes: +NORC1TAB7 PO
--- NOTE | 2021-07-16 12:01 | REP ---
INDICATION: SCREENING FOR LUNG CA. COMPARISON: 07/18/2020 the latest prior a standard noncontrast enhanced helical CT exam of the chest TECHNIQUE: Axial noncontrast images from the thoracic inlet to the upper abdomen using low-dose lung screening technique (LDCT). As per the protocol only lung window images were sent to the read station for interpretation. FINDINGS: There is biapical pleuroparenchymal scarring status quo. There are right upper and right middle lobe reticulonodular densities status quo. New inferior right middle lobe reticulonodular densities have developed. Grossly, the mediastinum and pulmonary matthew are unchanged. Grossly, the imaged upper abdomen and imaged osseous structures are unchanged. IMPRESSION: Lung field abnormalities as described above particularly in the inferior right middle lobe. Although the finding likely represents a continuum of chronic lung disease there is no revised Fleischner society criteria on the recommendation for follow-up of such findings. Follow-up should be based on clinical assessment. Pulmonary consultation is suggested. <Electronically signed by Ovidio Martin > 07/16/21 [id number]
== END ==
LOC: M RAD 10:52
PROVIDERS: ATTEND Student in an Organized Health Care Education/Training Program
DX: Z12.2 Encounter for screening for malignant neoplasm of respiratory organs (principal)

== ENCOUNTER → 2021-12-25 | Outpatient (CLI) | payer BC ==
[2021-12-25 19:29] LABS: CHOLESTEROL RISK RATIO 3.162 (<5)
[2021-12-25 21:28] LABS: TOTAL 25(OH) VITAMIN D 14.2 NG/ML (30.0-100.0)
== END ==
LOC: M PLALAB 14:45
PROVIDERS: ATTEND Student in an Organized Health Care Education/Training Program
DX: E55.9 Vitamin D deficiency, unspecified (principal)

== ENCOUNTER → 2022-04-16 | Outpatient (CLI) | payer BC | LOC: M PLAIMG 12:34 | PROVIDERS: ATTEND Student in an Organized Health Care Education/Training Program | DX: M54.50 Low back pain, unspecified (principal) ==

== ENCOUNTER → 2022-07-25 | Outpatient (CLI) | payer BC | LOC: M RAD 06:24 | PROVIDERS: ATTEND Physician Assistant | DX: Z87.891 Personal history of nicotine dependence (principal) ==

== ENCOUNTER → 2022-07-29 | Outpatient (CLI) | payer BC | LOC: M RAD 06:27 | PROVIDERS: ATTEND Physician Assistant | DX: S20.211A Contusion of right front wall of thorax, initial encounter (principal); W18.30XA Fall on same level, unspecified, initial encounter; Y92.009 Unspecified place in unspecified non-institutional (private) residence as the place of occurrence of the external cause ==

== ENCOUNTER → 2022-12-31 | Outpatient (CLI) | payer BC ==
[~2022-12-31] MED LIST changes: +ACET-897 PO; +ALBU8.5H INH; +CLAR1TAB13 PO; +PROBCAP14 PO
== END ==
LOC: M WHC 10:23
PROVIDERS: ATTEND Student in an Organized Health Care Education/Training Program
DX: M81.0 Age-related osteoporosis without current pathological fracture (principal)

== ENCOUNTER → 2023-09-11 | Outpatient (CLI) | payer OTHER | LOC: M RAD 09:15 | PROVIDERS: ATTEND Physician Assistant | DX: Z12.2 Encounter for screening for malignant neoplasm of respiratory organs (principal); F17.218 Nicotine dependence, cigarettes, with other nicotine-induced disorders ==

== ENCOUNTER → 2023-11-17 | Outpatient (REF) | payer OTHER | LOC: M LAB REF 12:58 | PROVIDERS: ATTEND Physician Assistant Medical | DX: R19.4 Change in bowel habit (principal) ==

== ENCOUNTER → 2023-11-24 | Outpatient (CLI) | payer OTHER ==
[~2023-11-24] MED LIST changes: +GLUCAGON INJ 1MG VIAL As Ordered ONE; +ISOVUE-370 76% 100ML VIAL As Ordered ONE; +NEULUMEX 0.1% SUSPENSION 450ML BOTTLE (FORMERLY VOLUMEN) As Ordered ONE
== END ==
LOC: M RAD 08:32
PROVIDERS: ATTEND Physician Assistant Medical
DX: R19.4 Change in bowel habit (principal)
CPT/HCPCS: 74177; J1610; Q9967

== ENCOUNTER → 2024-10-12 | Outpatient (CLI) | payer OTHER ==
[~2024-10-12] MED LIST changes: -GLUCAGON INJ 1MG VIAL As Ordered ONE; -ISOVUE-370 76% 100ML VIAL As Ordered ONE; -NEULUMEX 0.1% SUSPENSION 450ML BOTTLE (FORMERLY VOLUMEN) As Ordered ONE
== END ==
LOC: M RAD 09:08
PROVIDERS: ATTEND Physician Assistant
DX: Z87.891 Personal history of nicotine dependence (principal)